=== PATIENT | female | born 1945 | race Native Hawaiian/Other Pacific Islander ===

== ENCOUNTER 2016-03-22 12:29 | Outpatient (CLI) | payer OTHER, MEDICARE ==
[2016-03-22 12:45] LABS: PLATELET COUNT 385 K/uL (152-353)
== END 2016-03-22 19:45 | disposition home or self-care (01) ==
LOC: LABW 12:29
PROVIDERS: Nurse Practitioner Adult Health
DX: D64.89 Other specified anemias (principal); R53.1 Weakness
CPT/HCPCS: 36415; 85027

== ENCOUNTER 2016-03-24 11:22 | Emergency (ER) | payer OTHER, MEDICARE ==
[~2016-03-24] VITALS: Ht 154.9 cm; Wt 49.9 kg
[2016-03-24] MEDS ORDERED: METO25TA4 OR (11:47)
[2016-03-24] MEDS ORDERED: PANT40TA PO (11:47)
[2016-03-24] MEDS ORDERED: PRINIVIL10 MG OR (11:47)
[2016-03-24] MEDS ORDERED: FERROUS SULF325 M1 OR (11:48)
[2016-03-24] MEDS ORDERED: DIGOX250 MCG PO (11:49)
[2016-03-24] MEDS ORDERED: ADLT ASA LOW81 MG OR (11:50)
[2016-03-24 13:17] LABS: PLATELET COUNT 325 K/uL (152-353)
[2016-03-24 13:35] LABS: POTASSIUM 3.8 mmol/L (3.6-5.2); SODIUM 139 mmol/L (136-145)
[2016-03-24 18:20] VITALS: BP 134/82; TEMP 97.8
== END 2016-03-24 18:20 | disposition short-term general hospital (02) ==
LOC: ED 11:22
DX: R07.89 Other chest pain (principal); R06.02 Shortness of breath; D68.69 Other thrombophilia; I42.8 Other cardiomyopathies; I50.9 Heart failure, unspecified; R19.5 Other fecal abnormalities; I48.91 Unspecified atrial fibrillation; I48.92 Unspecified atrial flutter
CPT/HCPCS: 36415; 80053; 81000; 83880; 84484; 85027; 85610; 93005; 99284

== ENCOUNTER 2016-03-24 18:24 | Outpatient (CLI) | payer OTHER, MEDICARE ==
[~2016-03-24 18:24] MED LIST: ADLT ASA LOW81 MG OR; DIGOX250 MCG PO; FERROUS SULF325 M1 OR; METO25TA4 OR; PANT40TA PO; PRINIVIL10 MG OR
== END 2016-03-24 19:02 | disposition short-term general hospital (02) ==
LOC: AMB 18:24
DX: R07.89 Other chest pain (principal); R06.02 Shortness of breath; D68.69 Other thrombophilia; I42.8 Other cardiomyopathies; I50.9 Heart failure, unspecified; R19.5 Other fecal abnormalities; I48.91 Unspecified atrial fibrillation; I48.92 Unspecified atrial flutter
CPT/HCPCS: A0425; A0429

== ENCOUNTER 2016-06-28 11:24 | Outpatient (CLI) | payer OTHER, MEDICARE | END 2016-06-28 13:00 | disposition home or self-care (01) | LOC: LABW 11:24 | DX: D64.89 Other specified anemias (principal) | CPT/HCPCS: 36415; 85014; 85018 ==

== ENCOUNTER 2017-11-07 09:00 | Outpatient (CLI) | payer OTHER, MEDICARE ==
[~2017-11-07] VITALS: Ht 154.9 cm; Wt 52.6 kg
== END 2017-11-07 22:26 | disposition home or self-care (01) ==
LOC: NM 09:00
DX: R07.89 Other chest pain (principal)
CPT/HCPCS: A9500; J2785